=== PATIENT | female | born 1990 | race Hispanic/Latino ===

== ENCOUNTER 2024-10-16 21:54 | Emergency (ER) | payer OTHER ==
[~2024-10-16] VITALS: Ht 170.2 cm; Wt 78.5 kg
[2024-10-16 21:57] VITALS: PULSE 88; RESP 18; TEMP 98.1
[2024-10-16] MEDS ORDERED: TRANEXAMIC ACI650 MG PO (22:31)
[2024-10-16 22:36] VITALS: BP 117/65; PULSE 88; RESP 18; TEMP 98.1; O2SAT 100
== END 2024-10-16 22:56 | disposition home or self-care (01) ==
LOC: FSED 21:59
DX: N92.0 Excessive and frequent menstruation with regular cycle (principal); F17.210 Nicotine dependence, cigarettes, uncomplicated
CPT/HCPCS: 80053; 85025; 99283

== ENCOUNTER 2025-02-02 07:29 | Emergency (ER) | payer OTHER ==
[~2025-02-02] VITALS: Ht 170.2 cm; Wt 75.5 kg
[~2025-02-02 07:29] MED LIST: TRANEXAMIC ACI650 MG PO
[2025-02-02 07:35] VITALS: PULSE 88; RESP 20; TEMP 97.6
[2025-02-02] MEDS ORDERED: SORBITOL1 ML PO (08:02)
[2025-02-02] MEDS ORDERED: FLEET ENEMA133 ML PR (08:02)
[2025-02-02] MEDS ORDERED: ONDANSETRON ODT4 MG PO (08:02)
[2025-02-02] MEDS ORDERED: CEFDINIR300 MG PO (08:28)
[2025-02-02] MEDS: KETOROLAC TROMETHAMINE 30 MG/ML VIAL IV ONE (08:55)
[2025-02-02] MEDS: ONDANSETRON HCL INJ 2MG/ML 2ML 2 MG/ML VIAL IV ONE (08:55)
[2025-02-02] MEDS: FAMOTIDINE 20 MG/2 ML VIAL IV ONE (08:55)
[2025-02-02] MEDS: LACTATED RINGER'S 1,000 ML INJ ONE (08:56)
[2025-02-02 10:10] VITALS: BP 90/51; PULSE 85; RESP 16; TEMP 98.4; O2SAT 98
== END 2025-02-02 10:10 | disposition home or self-care (01) ==
LOC: FSED 07:40
DX: S00.83XA Contusion of other part of head, initial encounter (principal); R55 Syncope and collapse; W01.0XXA Fall on same level from slipping, tripping and stumbling without subsequent striking against object, initial encounter; Y92.89 Other specified places as the place of occurrence of the external cause; N39.0 Urinary tract infection, site not specified; K59.00 Constipation, unspecified; R10.30 Lower abdominal pain, unspecified; I95.9 Hypotension, unspecified; R94.31 Abnormal electrocardiogram [ECG] [EKG]
CPT/HCPCS: 70450; 74176; 80053; 81003; 81025; 84484; 85025; 93005; 99283; J0696; J1308; J1885; J2405; J7121